=== PATIENT | female | born 1990 | race Caucasian/White ===

== ENCOUNTER 2019-07-15 08:00 | Emergency (ER) | payer BC ==
--- OUTSIDE RECORDS SUMMARY | 2019-07-15 08:12 | XMS REPORT | Continuity of Care Document ---
:1990 External Reference #:[id number] Author Name Tiara Mills PA Address [address] [place] [address] Care Team Providers Name Role Phone [facility] - Care Team Information Mule Developer [phone] Endocrinology, Diabetes & Metabolism Scooter Treviño MD - Family Care Team Information Mule Developer Medicine Problems Active Problems Provider Date Type 1 diabetes mellitus Tiara Mills PA Onset: 07/15/2016 Social History Type Date Description Comments Sex Unknown ETOH Use Denies alcohol use Tobacco Use Start: Unknown Patient has never smoked Recreational Drug Use Denies Drug Use Allergies, Adverse Reactions, Alerts Description No Known Drug Allergies Medications Active Medications SIG Qnty Indications Ordering Date Provider Ondansetron one tab three times 30tabs R11.0 Hudson, 04/09/2017 8mg a day as needed MD Scooter Tablets Dispers nausea Nuvaring insert 1 ring 3units Z30.8 Hudson, 04/09/2017 vaginally per month MD Scooter 0.12-0.015mg/24HR Ring Novolog Cartrige administered via Unknown pump 100U/ML Cartridge Immunizations CPT Code Status Date Vaccine Lot # [id number] Given 04/13/2019 Influenza Vac, Quadrivalent, Split, 0.5mL Dosage, Im Use 88567 Given 04/29/2017 Influenza Vac, Quadrivalent, Split, 0.5mL Dosage, Im Use 92068 Given 07/15/2016 Tdap (Adacel) Ages 7 And Above Only [id number] Given 03/29/2016 Fluvirin Immunization 87309 Given 11/23/2007 HPV Vaccine (Gardasil) 3 Dose Schedule 44858 Given 04/23/2007 HPV Vaccine (Gardasil) 3 Dose Schedule 90683 Given 01/25/2007 Meningococcal Immunization 26446 Given 01/25/2007 HPV Vaccine (Gardasil) 3 Dose Schedule 69542 Given 08/25/2000 Prevnar 13 Pneumococal Conjugate Vaccine 40166 Given 01/21/1995 Hepatitis B Vac Ped/Adolescent 3 Dose Schedule 68177 Given 08/07/1994 Hepatitis B Vac Ped/Adolescent 3 Dose Schedule 21594 Given 04/10/1994 DTaP Immunization 6 Yrs & Younger 59449 Given 04/10/1994 MMR Virus Immunization 46086 Given 04/10/1994 Oral Poliovirus Immunization 72700 Given 04/10/1994 Hepatitis B Vac Ped/Adolescent 3 Dose Schedule 43193 Given 03/10/1991 Oral Poliovirus Immunization 51725 Given 03/10/1991 MMR Virus Immunization 43538 Given 03/10/1991 DTaP Immunization 6 Yrs & Younger 03562 Given 03/10/1991 Hib ACTHiB Vaccine 4 Dose Schedule 47846 Given 12/03/1990 Hib ACTHiB Vaccine 4 Dose Schedule 36443 Given 03/29/1990 DTaP Immunization 6 Yrs & Younger 35918 Given 02/12/1990 Oral Poliovirus Immunization 02404 Given 02/12/1990 DTaP Immunization 6 Yrs & Younger 53840 Given 1989 Oral Poliovirus Immunization 65474 Given 1989 DTaP Immunization 6 Yrs & Younger Vital Signs Date Vital Result Comment 07/01/2019 1:29pm Body Temperature 98.2 F Weight 143.00 lb Heart Rate 87 /min BP Systolic 110 mmHg BP Diastolic 78 mmHg Height 67 inches 5'7" O2 % BldC Oximetry 98 % BMI (Body Mass Index) 22.4 kg/m2 06/19/2017 2:05pm Body Temperature 98.0 F Weight 147.00 lb Heart Rate 82 /min BP Systolic 111 mmHg BP Diastolic 69 mmHg Height 67 inches 5'7" O2 % BldC Oximetry 95 % BMI (Body Mass Index) 23.0 kg/m2 Results Test Acquired Date Facility Test Result H/L Range Note Laboratory test 07/01/2019 Done In [facility] Office 1 Rapid Flu negA, neg B finding Test (In House) Procedures Description No Information Available Medical Devices Description No Information Available Encounters Description No Information Available Assessments Date Code Description Provider 07/01/2019 E10.65 Type 1 diabetes mellitus with hyperglycemia Tiara Mills PA 07/01/2019 Z13.89 Encounter for screening for other disorder Tiara Mills PA 07/01/2019 Z13.9 Encounter for screening, unspecified Tiara Mills PA 07/01/2019 Z13.31 Encounter for screening for depression Tiara Mills PA 07/01/2019 R50.9 Fever, unspecified Tiara Mills, ANDREY 07/01/2019 R50.9 Fever, unspecified Tiara Mills, ANDREY Plan of Treatment 07/01/2019 - Tiara Mills, PAE10.65 Type 1 diabetes mellitus with hyperglycemiaComments:Continue to monitor glucose levels with acute illness. Increase fluids[facility] Encounter for screening for other edacqhbfB65.9 Encounter for screening, fkeuludcwmkB73.31 Encounter for screening for swnzoptunrY35.9 Fever, unspecifiedComments:Alternate anti-pyretics- tylenol and ibuprofen q 3 hours. Cool bath. Fluids encouraged. Continue to monitor temperature and report if fever persists. Out of work until Thursday. Report if symptoms worsenor new symptosm develop.R50.9 Fever, unspecifiedComments:Alternate anti-pyretics- tylenol and ibuprofen q 3 hours. Cool bath. Fluids encouraged. Continue to monitor temperature and report if fever persists. Out of work until Thursday. Report if symptoms worsenor new symptosm develop. Functional Status Description No Information Available Mental Status Description No Information Available Referrals Description No Information Available
--- OUTSIDE RECORDS SUMMARY | 2019-07-15 08:12 | XMS REPORT | Summary of Care ---
:1990 Author Organization [facility] Address [address] [place] [address] Care Team Providers Name Role Phone Scooter Treviño MD Primary Care Provider Reason for Visit Reason Comments Follow-up Encounter Details Date Type Department Care Team Description 05/23/2019 Office Visit [facility] Dahlia, Type 1 diabetes mellitus with hyperglycemia (Primary Dx); CENTER Ras Oconnor MD Insulin pump status; [address] [place] [address] [place] [phone] Allergies No Known Allergiesdocumented as of this encounter (statuses as of 05/23/2019) Medications Medication Sig Dispensed Refills Start Date End Date Status Insulin Infusion Pump Use as directed. 0 Active Supplies (MINIMED INFUSION SET-MMT 399) MISC ibuprofen Take 400 mg by 0 Active (ADVIL,MOTRIN) 400 MG mouth every 6 (six) tablet hours as needed for Pain (headaches). ondansetron Take 1 tablet by 6 tablet 0 12/17/2015 Active (ZOFRAN-ODT) 8 MG mouth every 8 disintegrating (eight) hours as tabletIndications: needed for Nausea. Diabetes mellitus type 1, uncontrolled insulin glargine Inject once daily 20 mL 1 01/22/2016 Active (LANTUS) 100 UNIT/ML If insulin pump injection fails; Max daily dose 25 units glucagon (GLUCAGON Use as directed. 2 each 1 01/22/2016 Active EMERGENCY) 1 MG Inject 1 mg into injection muscle in case of extreme low blood sugar. acetone, urine, test Use up to 10 times 100 each 3 01/22/2016 Active (KETOSTIX) strip per day for hyperglycemia and/or illness DX: E10.65 diphenhydrAMINE Take 25 mg by mouth 0 Active (BENADRYL) 25 mg nightly as needed capsule for Itching. Insulin Infusion Pump by Does not apply 0 Active (RMI 670G INSULIN route PUMP) REMY Insulin Pump by Does not apply 0 Active Accessories (RMI route GUARDIAN LINK 3) [facility] [place] Blood Gluc by Does not apply 0 Active Sensor (AtBizzAN SENSOR 3) [facility] Blood Glucose by Does not apply 0 Active Monitoring Suppl route ([employer] CONTOUR LINK 2.4) w/Device KIT glucose blood (JOE 1 each by Other 0 Active CONTOUR TEST) test route as needed strip for OtherUse as instructed Biotin 95099 MCG TABS Take by mouth 0 Active folic acid (FOLVITE) Take 800 mg by 0 Active 1 MG tablet mouth daily oseltamivir (TAMIFLU) Take one tablet 10 capsule 0 09/23/2018 Active 75 MG capsule daily for 10 days. insulin aspart USE DIRECTED VIA 90 mL 3 03/04/2019 Active (NOVOLOG) 100 UNIT/ML INSULINPUMP UP TO vialIndications: 100 UNITS DAILY. Uncontrolled type 1 diabetes mellitus with hyperglycemia documented as of this encounter (statuses as of 05/23/2019) Active Problems Problem Noted Date Insulin pump status 02/15/2015 Type 1 diabetes mellitus with hyperglycemia 11/12/2011 Overview: Dx: 1997 (age 5) Eye exam: 06/09, 09/09, 09/10, 09/11, 02/12, 03/16, 03/17 Last Assessment & Plan: INSULIN PUMP SETTINGS Insulin Pump Model: TeraDiode 530G Infusion Set Model: Insulin: Humalog Active Insulin Time: 6 hours Basal Insulin Rates Standard Time Basal Rate (unit/hr) 0:00 0.5 2:30 0.5 6:00 0.7 10:00 1.4 13:00 1.5 14:30 1.5 22:00 1.0 Basal Insulin Rates Pattern A Time Basal Rate (unit/hr) 0:00 1.0 5:00 0.60 17:00 1.2 Bolus - Carb/Insulin Ratio Time Carb/Insulin Ratio 0:00 10 Bolus - Insulin Sensitivity Factor Time ISF 0:00 70 Blood Glucose Target (mg/dL) Time Value 0:00 100-120 Insulin long-term use Last Assessment & Plan: INSULIN PUMP SETTINGS Insulin Pump Model: MinimBOSS Metrics 670G Infusion Set Model: Insulin: Novolog Sensor: Guardian 3 Active Insulin Time: 3 hours Basal Insulin Rates Standard Time Basal Rate (unit/hr) 0:00 1.0 Bolus - Carb/Insulin Ratio Time Carb/Insulin Ratio 0:00 10 Bolus - Insulin Sensitivity Factor Time ISF 0:00 70 Blood Glucose Target (mg/dL) Time Value 0:00 90-120 Ras Villagomez MD Insulin pump in place documented as of this encounter (statuses as of 05/23/2019) Resolved Problems Problem Noted Date Resolved Date Hyperprolactinemia 02/17/2019 05/23/2019 Overview: 02/14 Prolactin 48 Near syncope 11/13/2014 04/14/2017 Overview: 11/10 Not orthostatic- however Pulse increased from 64 to 88, BP stable 100/70s Possibly due to dehydration documented as of this encounter (statuses as of 05/23/2019) Immunizations Name Administration Dates Next Due Influenza Quad IM Pres Free (0.25 mL dose) 04/09/2018 Influenza Quad MDCK IM Pres Free (FLUCELVAX QUAD) 04/26/2017 Influenza Whole 04/26/2014 documented as of this encounter Social History Tobacco Use Types Packs/Day Years Used Date Never Smoker Smokeless Tobacco: Never Used Alcohol Use Drinks/Week oz/Week Comments No Sex Assigned at Date Recorded Not on file Job Start Date Occupation Industry Not on file Not on file Not on file Travel History Travel Start Travel End No recent travel history available. documented as of this encounter Last Filed Vital Signs Vital Sign Reading Time Taken Comments Blood Pressure 102/70 05/23/2019 8:27 AM EST Pulse 72 05/23/2019 8:27 AM EST Temperature - - Respiratory Rate - - Oxygen Saturation - - Inhaled Oxygen Concentration - - Weight - - Height 168.7 cm (5' 6.42") 05/23/2019 8:27 AM EST Body Mass Index - - documented in this encounter Patient Instructions Patient InstructionsRas Villagomez MD - 05/23/2019 8:20 AM ESTCONTINUE CURRENT MANAGEMENT. documented in this encounter Progress Notes Ras Villagomez MD - 05/23/2019 8:20 AM ESTREVIEW OF CONTINUOUS GLUCOSE MONITOR DATA Data from the continue glucose monitor was reviewed. At least 72 hours of data was reviewed. CGMS: Guardian Average glucose = 161 Standard deviation = 68 Usage percentage: 86 Percentage of time in target range (TIR): 66% Percent hypoglycemia: low 2%, very low 1% Interpretation: Most glucoses at target. Plan: See Progress Note Plan or Telephone Call from today. Ras Trinidad MD - 05/23/2019 8:20 AM EST Subjective: Patient ID: Bethanie Baker is a 28 y.o. female. Diabetes She presents for her follow-up diabetic visit. She has type 1 (diagnosed in 1995 , age 5) diabetes mellitus. No MedicAlert identification noted. Pertinent negatives for hypoglycemia include no nervousness/anxiousness. Pertinent negatives for diabetes include no chest pain and no fatigue. Hypoglycemia complications include nocturnal hypoglycemia, required assistance and Glucose & lt;55. Pertinent negatives for hypoglycemia complications include no required glucagon injection. There are no diabetic complications. Current diabetic treatment includes insulin pump and intensive insulin program (Refer to insulin algorithm). She is currently taking insulin pre-breakfast, pre-lunch, pre- dinner and at bedtime. Insulin injections are given by patient. Rotation sites for injection/infusion include the thighs (changes sites every 3 days; no infections). Her weight is stable. She is following a generally healthy diet. Meal planning includes carbohydrate counting. She participates in exercise daily. She monitors blood glucose at home 5+ x per day (Uses CGMS). (The glucometer and insulin pump, if applicable, were downloaded and the data analyzed. These data are in the Media Section of the patient's record. Has glucose sensor.) Eye exam is current. Patient's medications, allergies, past medical, surgical, social and family histories were reviewed and updated as appropriate. Current Outpatient Medications Medication Sig Dispense Refill acetone, urine, test (KETOSTIX) strip Use up to 10 times per day for hyperglycemia and/or illness DX: E10.65 100 each 3 Biotin 74032 MCG TABS Take by mouth Blood Glucose Monitoring Suppl (JOE CONTOUR LINK 2.4) w/Device KIT by Does not apply route Continuous Blood Gluc Sensor (RMI GUARDIAN SENSOR 3) MISC by Does not apply route diphenhydrAMINE (BENADRYL) 25 mg capsule Take 25 mg by mouth nightly as needed for Itching. folic acid (FOLVITE) 1 MG tablet Take 800 mg by mouth daily glucagon (GLUCAGON EMERGENCY) 1 MG injection Use as directed. Inject 1 mg into muscle in caseof extreme low blood sugar. 2 each 1 glucose blood (JOE CONTOUR TEST) test strip 1 each by Other route as needed for OtherUse as instructed ibuprofen (ADVIL,MOTRIN) 400 MG tablet Take 400 mg by mouth every 6 (six ) hours as needed forPain (headaches). insulin aspart (NOVOLOG) 100 UNIT/ML vial USE DIRECTED VIA INSULINPUMP UP TO 100 UNITS DAILY. 90 mL 3 insulin glargine (LANTUS) 100 UNIT/ML injection Inject once daily If insulin pump fails; Max daily dose 25 units 20 mL 1 Insulin Infusion Pump (RMI 670G INSULIN PUMP) REMY by Does not apply route Insulin Infusion Pump Supplies (RMI INFUSION SET-MMT 399) MISC Use as directed. Insulin Pump Accessories (RMI GUARDIAN LINK 3) MISC by Does not apply route ondansetron (ZOFRAN-ODT) 8 MG disintegrating tablet Take 1 tablet by mouth every 8 (eight) hours as needed for Nausea. 6 tablet 0 oseltamivir (TAMIFLU) 75 MG capsule Take one tablet daily for 10 days. 10 capsule 0 No current facility-administered medications for this visit. Review of Systems Constitutional: Negative for fatigue and unexpected weight change. HENT: Negative for trouble swallowing and voice change. Respiratory: Negative for shortness of breath. Cardiovascular: Negative for chest pain. Gastrointestinal: Negative. Genitourinary: Negative for menstrual problem. Musculoskeletal: Negative for arthralgias. Skin: Negative for rash. Neurological: Negative for numbness. No paresthesias. Psychiatric/Behavioral: Negative for dysphoric mood. The patient is not nervous/ anxious. Objective: Physical Exam Vitals signs reviewed. Constitutional: General: She is not in acute distress. Appearance: She is not diaphoretic. Neck: Thyroid: No thyromegaly. Comments: Thyroid not enlarged. Cardiovascular: Rate and Rhythm: Normal rate and regular rhythm. Heart sounds: Normal heart sounds. No murmur. Pulmonary: Effort: Pulmonary effort is normal. Breath sounds: Normal breath sounds. Abdominal: Palpations: Abdomen is soft. There is no mass. Tenderness: There is no tenderness. Musculoskeletal: General: No deformity. Right lower leg: No edema. Left lower leg: No edema. Comments: Diabetic Foot Exam: Yes Inspection: Left - No ulcers or lesions noted and Right - No ulcers or lesions noted Pulses: Left Normal and Right Normal Monofilament Exam: Left - Normal and Right - Normal Lymphadenopathy: Cervical: No cervical adenopathy. Skin: General: Skin is warm. Coloration: Skin is not pale. Comments: Infusion sites looked unremakable. Neurological: General: No focal deficit present. Mental Status: She is alert. Sensory: No sensory deficit. Psychiatric: Mood and Affect: Mood normal. Behavior: Behavior normal. Assessment: Current Lab Data Hemoglobin A1C Date Value Ref Range Status 05/23/2019 7.5 (H) 4.0 - 6.0 % Final 02/17/2019 7.7 (H) 4.0 - 6.0 % Final 11/09/2018 8.0 (H) 4.0 - 6.0 % Final Past lab results reviewed. The glucometer and insulin pump (if applicable) were downloaded and the data analyzed. These data are in the Media Section of the patient's record. ASSESSMENT 1. Diabetes mellitus Type 1: A1c as documented above. Goal A1c: 7 %. Reviewed of glucoses from glucose meter download and CGMS download if applicable. Most glucoses at targets A1c has improved. 2. History of nocturnal hypoglycemia 3. History of severe hypoglycemia: avoided with CGMS 4. Hyperprolactinemia: repeat test normal. PLAN: 1. Lifestyle issues, including diet, weight management and physical activity discussed. 2. Self-management issues reviewed, including ways of avoiding hypoglycemia and hyperglycemia. 3. Recommended self monitoring of blood glucose levels >5times per day. 4. Proper administration of medications was reviewed. 5. Per [facility] policy AMB J-19, the [facility] RN dropper tank storage CDE may provide my patient with insulin adjustments and all diabetes management guidelines per approved policies AMB J-01 through AMB J-18. My patient may receive diabetes self- management education for any nursing, nutrition, or physical therapy needs which arise and require the expertise of a [facility] educator. 6. Follow up in 3-4 months and in 6 weeks 7. Continue using CGMS 8. Continue present insulin settings 9. Adjusted manual basal rate to 1 unit/hr to correspond to that in auto mode No orders of the defined types were placed in this encounter. Patient Instructions CONTINUE CURRENT MANAGEMENT. Insulin long-term use INSULIN PUMP SETTINGS Insulin Pump Model: MinimBOSS Metrics 670G Infusion Set Model: Insulin: Novolog Sensor: Guardian 3 Active Insulin Time: 3 hours Basal Insulin Rates Standard Time Basal Rate (unit/hr) 0:00 1.0 Bolus - Carb/Insulin Ratio Time Carb/Insulin Ratio 0:00 10 Bolus - Insulin Sensitivity Factor Time ISF 0:00 70 Blood Glucose Target (mg/dL) Time Value 0:00 90-120 Ras Villagomez MD documented in this encounter Plan of Treatment Date Type Specialty Care Team Description 08/29/2019 Office Visit Endocrinology Ras Villagomez MD [address] [place] [address] 01/05/2020 Office Visit Endocrinology Ras Villagomez MD [address] [place], [place] [id number] Health Maintenance Due Date Last Done Comments MMR Vaccines (1 of 1 - 1990 Standard series) Pneumococcal Vaccine: 11/12/1995 Pediatrics (0 to 5 Years) and At-Risk Patients (6 to 64 Years) (1 of 1 - PPSV23) DTaP,Tdap,and Td Vaccines (1 1996 - Tdap) HIV Screening 2002 Varicella Vaccines (1 of 2 - 2002 13+ 2-dose series) Hepatitis B Vaccines (1 of 3 2008 - Risk 3-dose series) Cervical Cancer Screening 3 2010 years Influenza Vaccine 03/29/2019 04/09/2018, 04/26/2017, 04/26/2014 Pneumococcal Vaccine: 65+ 2054 Years (1 of 2 - PCV13) HIB Vaccines Aged Out No longer eligible based on patient's age to complete this topic Hepatitis A Vaccines Aged Out No longer eligible based on patient's age to complete this topic IPV Vaccines Aged Out No longer eligible based on patient's age to complete this topic documented as of this encounter Goals Goal Patient Goal Associated Recent Patient-Stated? Author Type Problems Progress Blood Pressure < Blood Pressure 102/70 No Dahlia, 130/80 (05/23/2019 Ras Oconnor, 8:27 AM EST) HEMOGLOBIN A1C < Result 7.5 No Joann, 7.0 Component (05/23/2019 Marcy Grossman, 8:11 AM EST) TONG HOOKER LDL CHOLESTEROL Result 74 No Dahlia, < 100 Component (11/02/2017 Ras Oconnor, 8:44 AM EDT) documented as of this encounter Procedures Procedure Name Priority Date/Time Associated Comments Diagnosis POCT GLUCOSE, DOCKED Routine 05/23/2019 8:16 AM Results for this EST procedure are in the results section. POCT HEMOGLOBIN A1C, Routine 05/23/2019 8:11 AM Results for this DOCKED EST procedure are in the results section. documented in this encounter Results POCT glucose, docked (05/23/2019 8:16 AM EST) POC Glucose 101 70 - 140 mg/dL [facility] Specimen Whole Blood Performing Organization Address [facility] Phone Number POINT OF CARE TEST [address] [place] [phone] [facility] [address] [place] [id number] POCT Hemoglobin A1C, Docked (05/23/2019 8:11 AM EST) Hemoglobin A1C 7.5 (H) 4.0 - 6.0 % [facility] Estimated Avg Glucose 169 (H) <126 mg/dL [facility] Specimen Whole Blood Performing Organization Address [facility] Phone Number POINT OF CARE TEST [address] [place] [address] [facility] [address] [place] [phone] documented in this encounter Visit Diagnoses Diagnosis Type 1 diabetes mellitus with hyperglycemia - Primary Type I (juvenile type) diabetes mellitus without mention of complication, not stated as uncontrolled Insulin pump status Insulin pump in place Insulin pump status documented in this encounter
[2019-07-15 08:17] VITALS: BP 121/73
--- NOTE | 2019-07-15 08:33 | UC ---
Respiratory Complaint HPI - HPI Summary HPI Summary: 28 F Went to PCP around New Year and tested - for flu. Dx with viral. Symptoms improved and then she started with sinus congestion again. Thinks she may have bronchitis. Frequent productive cough and feels congestion in ears. using afril with relief. no fever. no sinus LOWRY. no teeth pain. no SOB. - History of Current Complaint Chief Complaint: UCGeneralIllness Stated Complaint: CONGESTION Time Seen by Provider: 07/15/19 08:24 Hx Obtained From: Patient Hx Last Menstrual Period: 06/02/16 Onset/Duration: Gradual Onset Pain Intensity: 0 Character: Cough: Productive - Allergies/Home Medications Allergies/Adverse Reactions: Allergies Allergy/AdvReac Type Severity Reaction Status Date / Time No Known Allergies Allergy Verified 07/15/19 08:17 Home Medications: Home Medications D-Methorphan/PE/Acetaminophen [Mucinex Sinus-Max Christopher-Pain Cp] 2 each PO ONCE [History Confirmed 07/15/19] PMH/Surg Hx/FS Hx/Imm Hx Previously Healthy: Yes Endocrine History: Diabetes - Surgical History Surgical History: Yes Surgery Procedure, Year, and Place: tonsils - Family History Known Family History: Positive: None Negative: Cardiac Disease, Hypertension, Diabetes - Social History Alcohol Use: None Substance Use Type: None Smoking Status (MU): Never Smoked Tobacco Review of Systems All Other Systems Reviewed And Are Negative: Yes Constitutional: Positive: Fatigue ENT: Positive: Ear Ache, Nasal Discharge, Sinus Congestion, Sinus Pain/ Tenderness Respiratory: Positive: Cough Is Patient Immunocompromised?: No Physical Exam Triage Information Reviewed: Yes Vital Signs: Initial Vital Signs Temp 98.1 F 07/15/19 08:12 Pulse 69 07/15/19 08:12 Resp 18 07/15/19 08:12 BP 121/73 07/15/19 08:12 Pulse Ox 99 07/15/19 08:12 Vital Signs Reviewed: Yes Eye Exam: Normal ENT Exam: Normal ENT: Positive: Nasal congestion, Nasal drainage - clear, TM dull, Sinus tenderness. Negative: TM bulging, TM red Dental Exam: Normal Neck exam: Normal Neck: Positive: 1 Respiratory Exam: Normal Cardiovascular Exam: Normal Abdominal Exam: Normal Musculoskeletal Exam: Normal Neurological Exam: Normal Psychological Exam: Normal Skin Exam: Normal Respiratory Course/Dx - Course Course Of Treatment: Pt with Sx on and off for 3 weeks with hx of type 1 DM -- still appears viral at this time -- advise to start flonase, netti pot and nyquil on her mucinex and if sx persist or worsen then start abx. augmentin causes GI upset. she tolerates amox and aware to try to not use unless sx warrant. aware and agree to SE of meds. rto prn and f/u pcp as advised - Differential Dx/Diagnosis Differential Diagnosis/HQI/PQRI: Bronchitis, Lower Resp Infection, Sinusitis Provider Diagnosis: Sinusitis Discharge ED - Sign-Out/Discharge Documenting (check all that apply): Patient Departure All imaging exams completed and their final reports reviewed: No Studies - Discharge Plan Condition: Good Disposition: HOME Prescriptions: Amoxicillin PO (*) [Amoxicillin 875 MG (*)] 875 mg PO BID #14 tab Patient Education Materials: Sinusitis (ED) Referrals: No Primary Care Phys,NOPCP [Primary Care Provider] - 3 Days Additional Instructions: As we discussed your symptoms appear to be viral at this time but based on your risk factor of having diabetes and duration of symptoms we will have antibiotics available if your symptoms worsen over the next 4-5 days. At this time start flonase in the AM with your mucinex-D and consider netti pot and nyquil in the evening. - Billing Disposition and Condition Condition: GOOD Disposition: Home
== END 2019-07-15 08:42 | disposition home or self-care (01) ==
LOC: UCCORT 08:00
DX: J32.9 Chronic sinusitis, unspecified (principal); R53.83 Other fatigue; H92.09 Otalgia, unspecified ear; E11.9 Type 2 diabetes mellitus without complications
CPT/HCPCS: 99202; G0463